=== PATIENT | male | born 1995 | race Caucasian/White ===

== ENCOUNTER 2019-11-08 07:37 | Outpatient (CLI) | payer OTHER ==
--- NOTE | 2019-11-08 09:20 | RAD ---
CHEST 2 VIEWS: HISTORY: Sternal pain. COMPARISON: None. FINDINGS: Lungs are clear. No pneumothorax. No effusion. Cardiac silhouette and mediastinal contours are wit hin normal limits. No acute osseous abnormality. IMPRESSION: No acute intrathoracic abnormality. POS: HOME
== END 2019-11-08 07:38 | disposition home or self-care (01) ==
LOC: BICRAD 07:37
DX: R07.2 Precordial pain (principal); V89.2XXA Person injured in unspecified motor-vehicle accident, traffic, initial encounter
CPT/HCPCS: 71046